=== PATIENT | female | born 1950 | race Caucasian/White ===

== ENCOUNTER 2019-08-03 09:00 | Emergency (ER) | payer SELFPAY ==
[2019-08-03] VITALS (8 sets, daily range): BP systolic 140–178; BP diastolic 93–114; PULSE 80–110; RESP 15–18; TEMP 36.9; O2SAT 92–98; BMI 35.9
--- NOTE | 2019-08-03 09:23 | ECG_ITS ---
Measurements Intervals [place] Rate: 107 P: 52 [place]: 162 QRS: 0 QRSD: 86 T: 32 QT: 326 QTc: 436 SINUS TACHYCARDIA POSSIBLE LEFT ATRIAL ENLARGEMENT [-0.1mV P WAVE IN V1/V2] Possible right atrial enlargement NONSPECIFIC T-WAVE ABNORMALITY ABNORMAL RHYTHM ECG INTERPRETATION BASED ON A DEFAULT AGE OF 40 YEARS No previous ECG available for comparison Electronically Signed On 08-03-2019 19:22:57 CDT by Tasia Martell M.D. [id number]
--- NOTE | 2019-08-03 09:32 | ED_ITS ---
Entered by Sulema Espinoza, acting as scribe for HPI - Chest Pain General: Chief Complaint: Chest Pain Stated Complaint: Chest pain/numbness left arm Time Seen by Provider: 08/03/19 09:08 Source: patient and family Mode of arrival: ambulatory Limitations: no limitations History of Present Illness: HPI narrative: 68 yo female presents with chest pain. 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 pt states the pain has been constant. pt states the pain radiates to the L arm. pt states she has had prior episodes. pt denies any other symptoms. MD complaint: chest pain Onset (ago): hour(s) Timing of current episode: constant and still present Onset: during rest Pain location: substernal Pain radiation: left arm (numbness) Severity: mild Quality: sharp Relieving factors: nothing Exacerbating factors: nothing Associated symptoms: Reports no associated symptoms; Deny abdominal pain, dyspnea, fever(s), nausea or vomiting Treatment prior to arrival: none Review of Systems General: Reports: 10 or more systems reviewed and unremarkable except in HPI and below Const: Denies: fever, chills, body aches, change in appetite, fatigue or malaise ENMT: Denies: throat pain, ear pain, nasal discharge or nasal congestion Resp: Denies: shortness of breath, productive cough or non-productive cough GI: Denies: abdominal pain, nausea, vomiting, vomiting blood, coffee grounds in vomit, diarrhea, constipation, bloating, blood in stool or black tarry stool : Denies: flank pain, difficulty urinating, painful urination, urinary frequency or urinary urgency Skin/Breast: Denies: rash or itching PFSH ED PFSH: Social History Smoking and tobacco status: never smoked Physical Exam Const: COMMON NORMALS: no apparent distress GENERAL APPEARANCE: cooperative and comfortable ORIENTATION/CONSCIOUSNESS: Yes awake, Yes oriented to person, Yes oriented to place and Yes oriented to time HENMT: COMMON NORMALS: normocephalic, head/scalp atraumatic, hearing grossly normal bilaterally, external ears normal, EAC's normal, TM's normal bilaterally, nasal mucous membranes and turbinates normal, moist oral mucous membranes and oropharynx normal HEAD & SCALP: normocephalic and atraumatic NOSE: nasal mucous membranes and turbinates normal EXTERNAL EAR: Yes external ears normal EXTERNAL AUDITORY CANAL: EAC's normal TYMPANIC MEMBRANE: TM's normal bilaterally Eye: COMMON NORMALS: PERRL, EOMs intact bilaterally, conjunctivae normal and no scleral icterus CONJUNCTIVA: Yes conjunctivae normal PUPIL: Yes PERRL Neck/C-Spine: COMMON NORMALS: full ROM, no lymphadenopathy, supple and no JVD Lymph: LYMPHATIC: no lymphadenopathy noted and no lymphedema noted Resp: COMMON NORMALS: normal respiratory effort, no retractions, no use of accessory muscles and clear to auscultation bilaterally AUSCULTATION: clear to auscultation bilaterally Cardio: COMMON NORMALS: no JVD GI: COMMON NORMALS: soft to palpation and no hepatosplenomegaly AUSCULTATION: Yes normoactive bowel sounds PALPATION: Yes soft, No tender, No guarding and Yes no hepatosplenomegaly Extremity: COMMON NORMALS: normal to inspection, normal capillary refill, no clubbing, cyanosis or edema, no calf tenderness and no pedal edema Neuro: SENSORIUM/ORIENTATION: Yes oriented to person, Yes oriented to place and Yes oriented to time Skin: COMMON NORMALS: no rashes or lesions noted GENERAL SKIN EXAM: no rashes or lesions noted Course Vital Signs: Vital signs: Vital Signs Temperature 98.5 F 08/03/19 09:07 Pulse Rate 104 H 08/03/19 13:03 Respiratory Rate 16 08/03/19 13:03 Blood Pressure 140/97 08/03/19 13:03 Pulse Oximetry 95 08/03/19 13:03 MDM - Chest Pain MDM Narrative: Medical decision making narrative: Reviewed findings with the patient. Will discharge home with aspirin and set her up to see cardiology for cardiac stress test. Added isosorbide mononitrate and Toprol for her hypertension also for its cardioprotective effect. Return to the emergency room if has any problems. Lab Data: Labs: Lab Results 08/03/19 08/03/19 08/03/19 Range/Units 09:20 09:20 09:20 WBC 10.7 H (4.0-10.0) 10^3/ uL RBC 4.69 (4.1-5.3) 10^6/u L Hgb 14.1 (11.5-15.3) g/dL Hct 43.0 (37.0-47.0) % MCV 91.7 (81-99) fL MCH 30.1 (28.0-34.0) pg MCHC 32.8 (30.0-36.0) g/dL RDW 13.0 (12.1-15.1) % Plt Count 219 (130-400) 10^3/c mm MPV 11.2 H (7.4-10.4) fL Neut % (Auto) 74.6 % Lymph % (Auto) 17.8 % [place] % (Auto) 5.2 % Eos % (Auto) 1.5 % Baso % (Auto) 0.6 % Neut # (Auto) 8.0 H (1.8-7.7) 10^3/u L Lymph # (Auto) 1.9 (0.8-4.8) 10^3/u L [place] # (Auto) 0.6 (0.2-0.9) 10^3/u L Eos # (Auto) 0.2 (0.0-0.8) 10^3/u L Baso # (Auto) 0.1 (0.0-0.1) 10^3/u L Nucleated RBC % (a uto) 0 % Nucleated RBCs # 0.0 /100WBC Sodium 140 (136-145) mmol/L Potassium 4.2 (3.5-5.1) mmol/L Chloride 100 (98-107) mmol/L Carbon Dioxide 32 H (22-29) mmol/L Anion Gap 12.2 (5-19) BUN 13 (8-23) mg/dL Creatinine 0.8 (0.5-0.9) mg/dL GFR Calculation 71.3 L (90-130) mL/min Glucose 122 H (65-115) mg/dL Calculated Osmolal ity 287 (285-295) mOsm/k g Calcium 10.3 (8.5-10.5) mg/dL Total Bilirubin 1.1 (0.15-1.2) mg/dL AST 30 (0-32) U/L ALT 16 (0-33) U/L Alkaline Phosphata se 89 (35-105) IU/L Troponin T Baselin e 8 (0-10) ng/mL Troponin T 120 Min [place] (0-10) ng/mL Delta Troponin T (0-10) ABS# Total Protein 8.3 (6.6-8.7) g/dL Albumin 4.5 (3.5-5.2) g/dL Globulin 3.8 (1.3-4.6) g/dL 08/03/19 Range/Units 11:07 WBC (4.0-10.0) 10^3/ uL RBC (4.1-5.3) 10^6/u L Hgb (11.5-15.3) g/dL Hct (37.0-47.0) % MCV (81-99) fL MCH (28.0-34.0) pg MCHC (30.0-36.0) g/dL RDW (12.1-15.1) % Plt Count (130-400) 10^3/c mm MPV (7.4-10.4) fL Neut % (Auto) % Lymph % (Auto) % [place] % (Auto) % Eos % (Auto) % Baso % (Auto) % Neut # (Auto) (1.8-7.7) 10^3/u L Lymph # (Auto) (0.8-4.8) 10^3/u L [place] # (Auto) (0.2-0.9) 10^3/u L Eos # (Auto) (0.0-0.8) 10^3/u L Baso # (Auto) (0.0-0.1) 10^3/u L Nucleated RBC % (a uto) % Nucleated RBCs # /100WBC Sodium (136-145) mmol/L Potassium (3.5-5.1) mmol/L Chloride (98-107) mmol/L Carbon Dioxide (22-29) mmol/L Anion Gap (5-19) BUN (8-23) mg/dL Creatinine (0.5-0.9) mg/dL GFR Calculation (90-130) mL/min Glucose (65-115) mg/dL Calculated Osmolal ity (285-295) mOsm/k g Calcium (8.5-10.5) mg/dL Total Bilirubin (0.15-1.2) mg/dL AST (0-32) U/L ALT (0-33) U/L Alkaline Phosphata se (35-105) IU/L Troponin T Baselin e (0-10) ng/mL Troponin T 120 Min [place] 8.37 (0-10) ng/mL Delta Troponin T 0.37 (0-10) ABS# Total Protein (6.6-8.7) g/dL Albumin (3.5-5.2) g/dL Globulin (1.3-4.6) g/dL Discharge Plan Discharge Patient Disposition: Home, Self-Care Clinical Impression: Atypical chest pain Condition: Stable Prescriptions: New isosorbide mononitrate 30 mg tablet extended release 24 hr 30 mg PO DAILY Qty: 30 RF: 0 Toprol XL 25 mg tablet extended release 24 hr 12.5 mg PO DAILY Qty: 20 RF: 0 No Action ibuprofen 200 mg Tablet 200 mg PO Q6H PRN (Reason: Pain) RF: 0 Discharge Orders: Discharge Order (Routine); Ordered 08/03/19 Ordered By: Yung Gonzalez Discharge Diet: Usual diet Discharge Activity: Limit activity as instructed Activity Restrictions/Additional Instructions: Case management will call with an appointment to see have a stress test done Discharge Date/Time: 08/03/19 13:04 Coding Level of Care Code ED Wash Crew Person for g Fwd Exam Comprehensive The documentation recorded by the Alexis mckeon Bridget Annette, accurately reflects the service I personally performed and the decisions made by Carlos cardoso Curtis L, DO Aug 03, 2019 09:00
[2019-08-03 09:41] LABS: Basophils # 0.1 10^3/uL (0.0-0.1); Basophils % 0.6 %; Eosinophils # 0.2 10^3/uL (0.0-0.8); Eosinophils % 1.5 %; Hemoglobin 14.1 g/dL (11.5-15.3); Lymphocytes # 1.9 10^3/uL (0.8-4.8); Lymphocytes % 17.8 %; Mean Corpuscular HGB Conc 32.8 g/dL (30.0-36.0); Mean Corpuscular Hemoglobin 30.1 pg (28.0-34.0); Mean Corpuscular Volume 91.7 fL (81-99); Mean Platelet Volume 11.2 fL (7.4-10.4); Monocytes # 0.6 10^3/uL (0.2-0.9); Monocytes % 5.2 %; Neutrophils % 74.6 %; Nucleated Red Blood Cells % 0 %; Platelet Count 219 10^3/cmm (130-400); Red Blood Count 4.69 10^6/uL (4.1-5.3); White Blood Count 10.7 10^3/uL (4.0-10.0)
[2019-08-03 09:44] LABS: Troponin(5th) Baseline 8 ng/mL (0-10)
[2019-08-03 09:49] LABS: Alanine Aminotransferase 16 U/L (0-33); Albumin Level 4.5 g/dL (3.5-5.2); Alkaline Phosphatase 89 IU/L (35-105); Anion Gap 12.2 (5-19); Aspartate Amino Transferase 30 U/L (0-32); Blood Urea Nitrogen 13 mg/dL (8-23); Calcium 10.3 mg/dL (8.5-10.5); Carbon Dioxide 32 mmol/L (22-29); Chloride 100 mmol/L (98-107); Globulin 3.8 g/dL (1.3-4.6); Glomerular Filtration Rate 71.3 mL/min (90-130); Glucose 122 mg/dL (65-115); Osmolality Calculated 287 mOsm/kg (285-295); Potassium 4.2 mmol/L (3.5-5.1); Sodium 140 mmol/L (136-145); Total Bilirubin 1.1 mg/dL (0.15-1.2); Total Protein 8.3 g/dL (6.6-8.7)
--- NOTE | 2019-08-03 10:08 | XRR_ITS ---
PROCEDURE INFORMATION: Exam: XR Chest, 1 View Exam date and time: 08/03/2019 10:20 AM Age: 68 years old Clinical indication: Cough and dyspnea; Additional info: Dyspnea/cough TECHNIQUE: Imaging protocol: XR of the chest Views: Frontal portable upright view of the chest. COMPARISON: No relevant prior studies available. FINDINGS: Tubes, catheters and devices: EKG leads are present overlying the chest. Lungs: The lungs are clear bilaterally. The pulmonary vasculature is normal. Pleural space: No pleural effusion. No pneumothorax. Heart/Mediastinum: The heart is normal in size and contour. Bones/joints: No acute chest wall abnormality identified. XR/XR chest 1V portable [id number] IMPRESSION: No acute cardiopulmonary abnormality identified.
--- NOTE | 2019-08-03 10:46 | PC.NURSE ---
Pt states she is having intermittent SOB with chest pain. Pt at rest when this happens. Pain and SOB quickly goes away when it starts. Pt states chest pain is 2/10 at this time.
--- NOTE | 2019-08-03 11:23 | ECG_ITS ---
Measurements Intervals [place] Rate: 108 P: 19 ID: [id number] QRS: -10 QRSD: 79 T: 9 QT: 326 QTc: 438 SINUS TACHYCARDIA ABNORMAL RHYTHM ECG No previous ECG available for comparison Electronically Signed On 08-03-2019 19:28:42 CDT by Tasia Martell M.D. [email or web address]
[2019-08-03 11:50] LABS: Troponin 5 2HR 8.37 ng/mL (0-10); Troponin 5 2HR Delta 0.37 ABS# (0-10)
--- NOTE | 2019-08-06 09:38 | DCPLANNER ---
global upstream marketing manager called to speak with patient about stress test that was ordered. global upstream marketing manager wanted to confirm that patient still wanted to have the stress test ordered, and to confirm who patient sees for primary care. global upstream marketing manager was unable to speak with patient at this time, a voicemail was left for patient to return transplant case manager phone call.
--- NOTE | 2019-08-06 10:16 | DCPLANNER ---
Patient returned telehealth case manager phone call, patient stated that she sees Dr. Hurst for primary care. orchard manager asked patient if she still wanted to have stress test ordered. Patient stated that she wanted to wait and see her primary care physician, to see if the primary care wanted patient to have stress test. Patient stated that she would see her physician, and if the physician wanted patient to have stress test, then patients physician can order the stress test.
== END 2019-08-03 13:04 | disposition home or self-care (01) ==
PROVIDERS: Emergency Provider Family Medicine
DX: R07.89 Other chest pain (principal)
CPT/HCPCS: 12345; 36415; 71045; 80053; 84484; 85025; 93005; 99283

== ENCOUNTER 2023-10-26 09:10 | Emergency (ER) | payer MEDICARE, MEDICAID, SELFPAY ==
[2023-10-26 09:46] VITALS: BP 159/89; PULSE 81; RESP 17; TEMP 36.7; O2SAT 97
--- NOTE | 2023-10-26 09:56 | XRR_ITS ---
PROCEDURE INFORMATION: Exam: XR Left Foot Exam date and time: 10/26/2023 10:18 AM Age: 72 years old Clinical indication: Pain; Foot; Left TECHNIQUE: Imaging protocol: Radiologic exam of the left foot. Views: 3 or more views. COMPARISON: CR (LOW EXM, ) 10/26/2023 10:18 AM FINDINGS: Bones/joints: Multi-articular primary osteoarthritic changes including joint space narrowing, subchondral cystic/sclerotic changes, and marginal osteophyte formations. Mild hallux valgus. There is a benign os peroneus accessory ossicle. Enthesophytes are present off the os calcis at the Achilles insertion and plantar fascia origin. Soft tissues: See Bones/joints finding. Vasculature: There are peripheral vascular calcifications. XR/XR foot LT min 3V* [id number] IMPRESSION: Multi-articular primary osteoarthritic changes as described above.
--- NOTE | 2023-10-26 09:56 | XRR_ITS ---
PROCEDURE INFORMATION: Exam: XR Left Knee Exam date and time: 10/26/2023 10:18 AM Age: 72 years old Clinical indication: Pain; Knee; Left TECHNIQUE: Imaging protocol: Radiologic exam of the left knee. Views: 3 views. COMPARISON: CR XR foot LT min 3V* [id number] 10/26/2023 10:18 AM FINDINGS: Bones/joints: There are tricompartmental marginal osteophyte formations. Soft tissues: Normal. XR/XR knee LT 3V* [id number] IMPRESSION: Tricompartmental osteoarthritic changes.
--- NOTE | 2023-10-26 10:13 | ED_ITS ---
HPI - Extremity Problem General: Chief complaint: Extremity Injury, Lower Stated complaint: left knee and foot pain Time Seen by Provider: 10/26/23 09:46 Source: patient Mode of arrival: ambulatory History of Present Illness: 72-year-old female who presents emergenc y room complaining of left knee and foot pain. Patient knows of no precipitating injury no previous injury to the foot no previous surgeries. He is complaining of pain on the dorsum of the left foot the proximal portion of the metatarsals as well as in the left knee she reports the knee is somewhat swollen she has only taken thing for this been going on for the last several days to week. MD Complaint: joint pain Onset (ago): week(s) Pain Consistency: constant Location: left, knee and other (But) Relieving factors: rest Exacerbating factors: weight bearing and walking Associated symptoms: Deny arthralgias, chest pain, fever(s), myalgias, rash or short of breath Review of Systems Const: Denies: fever(s) Card: Denies: chest pain Skin/Breast: Denies: rash PFSH ED PFSH: Social History Smoking and tobacco/nicotine status: never used tobacco/nicotine Physical Exam Narrative: EXAM NARRATIVE: Examination of the left foot there is no evidence of deformity or swelling no pain with palpation dorsalis pedis pulse and posterior tibialis pulses are palpable neurovascularly intact. Examination left knee minimal joint effusion no ligamentous instability is laxities or deformities no abrasions or swelling. Patella mobile nontender Course Vital Signs: Vital signs: Vital Signs Temperature 98.0 F 10/26/23 09:46 Pulse Rate 81 10/26/23 09:46 Respiratory Rate 18 10/26/23 12:44 Blood Pressure 159/89 10/26/23 09:46 Pulse Oximetry 97 10/26/23 09:46 Oxygen Delivery Me thod Room Air 10/26/23 09:46 MDM - Extremity (Nontraumatic) Medical Decision Making Arthritic changes of the foot and the knee no acute fractures. Will discharge the patient home diclofenac to use. Follow-up with primary care doctor. Medical Records I reviewed the patient's medical records. Lab Data I reviewed the patient's lab results. Radiology Impressions Foot X-Ray 10/26/23 09:56 IMPRESSION: Multi-articular primary osteoarthritic changes as described above. Knee X-Ray 10/26/23 09:56 IMPRESSION: Tricompartmental osteoarthritic changes. All radiology interpretation(s) finalized by discharge Discharge Plan Discharge Patient Disposition: Home Clinical Impression: Foot pain, left, Knee pain, left Condition: Stable Prescriptions: New diclofenac sodium 75 mg tablet,delayed release (DR/EC) 75 mg PO Q12H PRN (Reason: pain) Qty: 20 0RF Discontinued ibuprofen 200 mg Tablet 200 mg PO Q6H PRN (Reason: Pain) No Action isosorbide mononitrate 30 mg tablet extended release 24 hr 30 mg PO DAILY Qty: 30 0RF Toprol XL 25 mg tablet extended release 24 hr 12.5 mg PO DAILY Qty: 20 0RF Discharge Orders: Discharge ED (Routine); Ordered 10/26/23 Ordered By: Yung Gonzalez Referrals: Ahsan Hurst [Primary Care Provider] - Discharge Diet: Usual diet Discharge Activity: Increase activity as tolerated Patient Instructions: Opioid Safety, Pain Management Activity Restrictions/Additional Instructions: Thank you for choosing [facility] for your healthcare needs today. It is very important that you follow up as instructed or that you return to the Emergency Department should you have concerns or if your condition changes or worsens in any way. You were seen today for foot and knee pain on your left leg. X-ray does not show any acute fractures. There is no joint effusions or signs of significant ligamentous injury. Will start you on diclofenac 1 every 12 hours as needed. If symptoms persist follow-up with your primary care doctor to reevaluate. Source of your symptoms is likely arthritic in nature. Coding Level of Care Code ED Director Of Pupil Personnel Program for Jrery Man
[2023-10-26 12:44] VITALS: RESP 18
== END 2023-10-26 11:10 | disposition home or self-care (01) ==
PROVIDERS: Emergency Provider Family Medicine; PCP Family Medicine
DX: M25.562 Pain in left knee (principal); M79.672 Pain in left foot
CPT/HCPCS: 73562; 73630; 99284